=== PATIENT | male | born 1950 | race Caucasian/White ===

== ENCOUNTER → 2023-01-08 | Outpatient (CLI) | payer OTHER ==
[~2023-01-08] MED LIST: IOPAMIDOL 370 MG/ML 100 ML INFUS..BTL INJ ONE; SODIUM CHLORIDE 0.9% 100 ML ONE
[2023-01-08 14:49] LABS: CREATININE, SERUM 1.06 mg/dL (0.72-1.25)
== END ==
LOC: CT 13:58
PROVIDERS: ATTEND Internal Medicine Cardiovascular Disease
DX: I71.21 Aneurysm of the ascending aorta, without rupture (principal)
CPT/HCPCS: 36415; 71275; 74174; 82565; 84520; J7050; Q9967